=== PATIENT | male | born 1990 | race Two or more races ===

== ENCOUNTER 2024-09-26 11:52 | Emergency (ER) | payer MEDICAID ==
[~2024-09-26] VITALS: Ht 180.3 cm; Wt 143.4 kg
--- NOTE | 2024-09-26 12:17 | ED.PDOC ---
General HPI Comments 34y M who presents to the ED for chief complaint of hematuria. Pt states he recently got hired at [employer] at and states he was at physical at [facility] and states he was told his Accu check was in the 300's and told his urine contained blood. Pt states while at physical, he started to have dizziness and came to the ED for further evaluation. Pt in the ED, otherwise states he does not have history of DM but states his parents are both diabetics. Pt otherwise is ax0x4 and able to answer all questions and denies any other symptoms at this time. Chief Complaint: Urinary Time Seen by MD: 12:11 Reviewed notes: Nurses Notes, Medications (NKDA), Allergies (NKDA) Information Source: Patient Mode of Arrival: Ambulatory Brought in by: self Severity: Moderate Inability to void: None Timing: Hours Duration: Since onset Has not urinated for: Minutes Prehospital treatment: None Onset: Spontaneous Symptoms: Hematuria History of: None Penile discharge: None Modifying factors: None associated signs and symptoms: Hematuria Past Medical History Past Medical History (Other): CARLOS Surgical History: Appendectomy Family History Family History: Family hx of DM Social History Smoker: Non-Smoker Alcohol: Occasionally Drugs: Denies Drug Use Lives In: Home Constitutional: denies: chills, diaphoresis, fatigue, fever, malaise, sweats, weakness, others EENTM: denies: blurred vision, double vision, ear bleeding, ear discharge, ear drainage, ear pain, ear ringing, eye pain, eye redness, hearing loss, mouth p ain, mouth swelling, nasal discharge, nose bleeding, nose congestion, nose pain, photophobia, tearing, throat pain, throat swelling, voice changes, others Respiratory: denies: cough, hemoptysis, orthopnea, SOB at rest, shortness of br eath, SOB with excertion, stridor, wheezing, others Cardiovascular: denies: chest pain, dizzy spells, diaphoresis, Dyspnea on exertion, edema, irregular heart beat, left arm pain, lightheadedness, palpitations, PND, syncope, others Gastrointestinal: denies: abdomen distended, abdominal pain, blood streaked bowels, constipated, diarrhea, dysphagia, difficulty swallowing, hematemesis, melena, nausea, poor appetite, poor fluid intake, rectal bleeding, rectal pain, vomiting, others Genitourinary: reports: hematuria; denies: burning, dysuria, flank pain, frequency, incontinence, penile discharge, penile sore, pain, testicle pain, testicle swelling, urgency, others Neurological: denies: dizziness, fainting, headache, left sided numbness, left sided weakness, numbness, paresthesia, pre-existing deficit, right sided numbness, right sided weakness, seizure, speech problems, tingling, tremors, weakness, others Musculoskeletal: denies: back pain, gout, joint pain, joint swelling, muscle pain, muscle stiffness, neck pain, others Integumetry: denies: bruises, change in color, change in hair/nails, dryness, laceration, lesions, lumps, rash, wounds, others Allergic/Immunocompromised: denies: Difficulty Healing, Frequent Infections, Hives, Itching, others Hematologic/Lymphatic: denies: anemia, blood clots, easy bleeding, easy bruisin g, swollen glands, others Endocrine: denies: excessive hunger, excessive sweating, excessive thirst, excessive urination, flushing, intolerance to cold, intolerance to heat, unexplained weight gain, unexplained weight loss, others Psychiatric: denies: anxiety, bipolar disorder, depression, hopeless, panic disorder, schizophrenia, sleepless, suicidal, others All Other Systems: Reviewed and Negative Physical Exam General Appearance: Obese HEENT: Normal ENT Inspection, Pharynx Normal, TMs Normal Neck: Full Range of Motion, Non-Tender, Normal, Normal Inspection Respiratory: Chest Non-Tender, Lungs Clear, No Accessory Muscle Use, No Respiratory Distress, Normal Breath Sounds Cardiovascular: No Edema, No JVD, No Murmur, No Gallop, Normal Peripheral Pulses, Regular Rate/Rhythm Breast Exam: Deferred Gastrointestinal: No Organomegaly, Non Tender, No Pulsatile Mass, Normal Bowel Sounds, Soft Genitalia: Deferred Pelvic: Deferred Rectal: Deferred Extremities: No calf tenderness, Normal capillary refill, Normal inspection, Normal range of motion, Non-tender, No pedal edema Musculoskeletal : Apperance: Normal Neurologic: Alert, hypoid gear tester II-XII nml as Tested, No Motor Deficits, Normal Affect, Normal Mood, No Sensory Deficits Cerebellar Function: Normal Reflexes: Normal Skin: Dry, Normal Color, Warm Lymphatic: No Adenopathy Was a procedure done? Was a procedure done?: No EKG EKG : Pulse Rate (adult): 91 [place]: Normal Cardiac Rhythm: NSR Block: None Hypertrophy: None ST: Normal Differential Diagnosis Kidney stone (Female): N/A Kidney stone (Male): Pyelonephritis, Strain, Urolithiasis, Urinary tract infection Urinary Problem (Male): Epididymitis, Prostatitis, Urethritis, Urinary Retention, UTI X-Ray, Labs, Meds, VS Vital Signs Date Time Temp Pulse Resp B/P (MAP) Pulse Ox O2 Delivery O2 Flow Rate FiO2 09/26/24 12:44 83 18 96 Room Air* 0 21 09/26/24 12:41 98.4 86 18 158/79 (105) 96 98.4 09/26/24 12:41 86 18 96 Room Air 09/26/24 12:17 91 09/26/24 12:09 98.2 87 18 146/93 (110) 99 09/26/24 12:03 91 Lab Test 09/26/24 12:38 09/26/24 12:12 09/26/24 12:00 Range/Units White Blood Count 9.0 4.4-10.8 10^3/uL Red Blood Count 5.76 4.5-5.90 10^6/uL Hemoglobin 17.0 13.5-17.5 g/dL Hematocrit 50.3 41.0-53.0 % Mean Corpuscular Volume 87.3 80.0-100.0 fL Mean Corpuscular Hemoglobin 29.5 28.0-32.0 pg Mean Corpuscular Hemoglobin Concent 33.8 32.0-36.0 g/dL Red Cell Distribution Width 13.1 11.8-14.3 % Platelet Count 276 140-450 10^3/uL Mean Platelet Volume 8.6 6.9-10.8 fL Neutrophils (%) (Auto) 61.9 37.0-80.0 % Lymphocytes (%) (Auto) 28.0 10.0-50.0 % Monocytes (%) (Auto) 8.7 0.0-12.0 % Eosinophils (%) (Auto) 1.1 0.0-7.0 % Basophils (%) (Auto) 0.3 0.0-2.0 % Neutrophils # (Auto) 5.6 1.6-8.6 10 ^3/uL Lymphocytes # (Auto) 2.5 0.4-5.4 10 ^3/uL Monocytes # (Auto) 0.8 0-1.3 10 ^3/uL Eosinophils # (Auto) 0.1 0-0.8 10 ^3/uL Basophils # (Auto) 0 0-0.2 10 ^3/uL Nucleated Red Blood Cells 0.1 % Sodium Level 133 L 136-145 mmol/L Potassium Level 3.9 3.5-5.1 mmol/L Chloride Level 99 98-107 mmol/L Carbon Dioxide Level 27 20-31 mmol/L Anion Gap 7 5-15 Blood Urea Nitrogen 12 9-23 mg/dL Creatinine 0.79 0.700-1.30 mg/dL Glomerular Filtration Rate Calc 120 >90 mL/min BUN/Creatinine Ratio 15.2 10.0-20.0 Serum Glucose 355 H 74-106 mg/dL Calcium Level 10.4 8.7-10.4 mg/dL Urine Color Colorless Yellow Urine Clarity Clear Clear Urine pH 5.5 5.0-9.0 Urine Specific [place] 1.008 1.001-1.035 Urine Protein Negative Negative Urine Ketones Negative Negative Urine Blood 3+ H Negative /uL Urine Nitrite Negative Negative Urine Bilirubin Negative Negative Urine Urobilinogen Normal Negative mg/dL Urine Leukocyte Esterase Negative Negative /uL Urine RBC 4 0 - 3 /hpf Urine Microscopic WBC < 1 0-3 /HPF Urine Squamous Epithelial Cells None seen <5 /hpf Urine Bacteria None seen None Seen /hpf Urine Glucose 4+ H Normal mg/dL POC Glucose 355 H 70-106 mg/dl The patient was CBC is within normal limits The chemistry panel is within normal limits The urine test negative The patient was being discharged and follow up with the doctor The patient will return to the emergency department's the condition worsens. We explained to the patient that he needs to follow up with his doctor to determine if he needs to be started on medication for potential diabetes Images Reviewed?: Images reviewed and evaluated by me Time of 1ST Reevaluation: 12:40 Reevaluation 1ST: Unchanged Patient Education/Counseling: Diagnosis, Treatment, Prognosis, Need For Follow Up Family Education/Counseling: No Family Present Departure 1 Departure Time of Disposition: 13:55 Impression: Primary Impression: Hyperglycemia Disposition: 01 HOME / SELF CARE / HOMELESS Condition: Fair Discharged With: Self Critical Care Note Critical Care Time?: No Stability Stability form required: No Heart Score Heart Score: Heart Score Response (Comments) Value History N/A 0 EKG N/A 0 Age N/A 0 Risk Factors N/A 0 Troponin N/A 0 Total 0 I personally scribed for REBEKA DAMON MD ([email or web address]) on 09/26/24 at 12:17. Electronically submitted by Ghislaine Baltazar ([facility]). REBEKA DAMON MD Sep 26, 2024 12:17
[2024-09-26 12:44] VITALS: PULSE 83; RESP 18; O2SAT 96
[2024-09-26 12:54] LABS: Urine Bacteria None Seen /hpf (None Seen)
[2024-09-26 13:17] LABS: Basophils # (auto) 0 10 ^3/uL (0-0.2); Basophils % (auto) 0.3 % (0.0-2.0); Eosinophils # (auto) 0.1 10 ^3/uL (0-0.8); Eosinophils % (auto) 1.1 % (0.0-7.0); Hematocrit 50.3 % (41.0-53.0); Lymphocytes # (auto) 2.5 10 ^3/uL (0.4-5.4); Mean Corpuscular Hemoglobin 29.5 pg (28.0-32.0); Mean Corpuscular Hgb Conc. 33.8 g/dL (32.0-36.0); Mean Corpuscular Volume 87.3 fL (80.0-100.0); Monocytes # (auto) 0.8 10 ^3/uL (0-1.3); Monocytes % (auto) 8.7 % (0.0-12.0); Neutrophils # (auto) 5.6 10 ^3/uL (1.6-8.6); Neutrophils % (auto) 61.9 % (37.0-80.0); Nucleated Red Blood Cells % 0.1 %; Platelet Count (auto) 276 10^3/uL (140-450); Red Blood Cells 5.76 10^6/uL (4.5-5.90); Red Cell Distribution Width 13.1 % (11.8-14.3)
[2024-09-26 13:23] LABS: Urine Blood 3+ /uL (Negative); Urine Clarity Clear (Clear); Urine Color Colorless (Yellow); Urine Protein, UAD Negative (Negative); Urine Specific Gravity 1.008 (1.001-1.035); Urine Squamous Epithelial Cell None Seen /hpf (<5); Urine Urobilinogen Normal (Negative); Urine WBC < 1 /HPF (0-3); Urine pH 5.5 (5.0-9.0)
[2024-09-26 13:42] LABS: Anion Gap 7 (5-15); Carbon Dioxide 27 mmol/L (20-31); Chloride 99 mmol/L (98-107); Potassium 3.9 mmol/L (3.5-5.1)
[2024-09-26 13:46] LABS: Calcium 10.4 mg/dL (8.7-10.4); Sodium 133 mmol/L (136-145)
[2024-09-26 13:48] LABS: BUN/Creatinine Ratio 15.2 (10.0-20.0); Blood Urea Nitrogen 12 mg/dL (9-23)
[2024-09-26 13:57] LABS: Glucose 355 mg/dL (74-106)
[2024-09-26 14:44] VITALS: BP 134/86; PULSE 86; RESP 20; TEMP 98.1; O2SAT 94
--- NOTE | 2024-09-27 09:57 | ECG ---
[facility] Test Date: 2024-09-26 Test Time: 12:03:56 Pat Name: LANDON JOINER Department: ER Room: Gender: M Lab Pack Chemist: IC : 1990 Requested By: REBEKA DAMON Order Number: [id number] Reading MD: Harshil Matthew Measurements Intervals [place] Rate: 91 P: 23 VT: 172 QRS: -43 QRSD: 105 T: 9 QT: 353 QTc: 435 Interpretive Statements Sinus rhythm Left anterior fascicular block Consider anterior infarct Electronically Signed On 09-27-2024 12:00:07 PST by Harshil Matthew Please click the below link to view image of tracing.
== END 2024-09-26 14:46 | disposition home or self-care (01) ==
LOC: ER 11:56
DX: R73.9 Hyperglycemia, unspecified (principal); G47.33 Obstructive sleep apnea (adult) (pediatric); R31.9 Hematuria, unspecified; Z90.49 Acquired absence of other specified parts of digestive tract
CPT/HCPCS: 36415; 80048; 81001; 82962; 85025; 93005

== ENCOUNTER → 2024-10-12 | Outpatient (CLI) | payer MEDICAID ==
[2024-10-12 08:09] LABS: Urine Bacteria None Seen /hpf (None Seen)
[2024-10-12 08:35] LABS: Urine Blood Negative /uL (Negative); Urine Clarity Clear (Clear); Urine Color Light-Yellow (Yellow); Urine Protein, UAD Negative (Negative); Urine Specific Gravity 1.012 (1.001-1.035); Urine Squamous Epithelial Cell None Seen /hpf (<5); Urine Urobilinogen Normal (Negative); Urine WBC < 1 /HPF (0-3)
[2024-10-12 08:44] LABS: Alkaline Phosphatase 90 U/L (46-116); Anion Gap 9 (5-15); BUN/Creatinine Ratio 15.4 (10.0-20.0); Blood Urea Nitrogen 12 mg/dL (9-23); Calcium 10.1 mg/dL (8.7-10.4); Carbon Dioxide 26 mmol/L (20-31); Chloride 103 mmol/L (98-107); LDL Cholesterol 85 mg/dL (< 100); Potassium 3.9 mmol/L (3.5-5.1); Sodium 138 mmol/L (136-145)
[2024-10-12 08:45] LABS: Alanine Aminotransferase 63 U/L (7-40); Albumin 4.9 g/dL (3.2-4.8); Aspartate Aminotransferase 65 U/L (13-40); Bilirubin, Total 0.9 mg/dL (0.2-1.0); Cholesterol 143 mg/dL (< 200); Glucose 154 mg/dL (74-106); HDL Cholesterol 42 mg/dL (40-59); Triglycerides 153 mg/dL (< 150)
[2024-10-12 08:46] LABS: Basophils # (auto) 0.1 10 ^3/uL (0-0.2); Eosinophils # (auto) 0.2 10 ^3/uL (0-0.8); Total Protein 7.9 g/dL (5.7-8.2)
[2024-10-12 09:05] LABS: Basophils % (auto) 0.5 % (0.0-2.0); Eosinophils % (auto) 1.9 % (0.0-7.0); Hematocrit 47.9 % (41.0-53.0); Hemoglobin 16.3 g/dL (13.5-17.5); Lymphocytes # (auto) 3.1 10 ^3/uL (0.4-5.4); Lymphocytes % (auto) 27.5 % (10.0-50.0); Mean Corpuscular Hemoglobin 29.9 pg (28.0-32.0); Mean Corpuscular Volume 87.9 fL (80.0-100.0); Monocytes # (auto) 0.9 10 ^3/uL (0-1.3); Monocytes % (auto) 7.5 % (0.0-12.0); Neutrophils # (auto) 7.1 10 ^3/uL (1.6-8.6); Neutrophils % (auto) 62.6 % (37.0-80.0); Nucleated Red Blood Cells % 0.3 %; Platelet Count (auto) 291 10^3/uL (140-450); Red Blood Cells 5.45 10^6/uL (4.5-5.90); Red Cell Distribution Width 13.1 % (11.8-14.3); White Blood Cell 11.3 10^3/uL (4.4-10.8)
[2024-10-12 11:10] LABS: Platelet Estimate Adequate
== END | disposition home or self-care (01) ==
LOC: LAB 07:46
PROVIDERS: ATTEND Licensed Practical Nurse
DX: Z13.6 Encounter for screening for cardiovascular disorders (principal); Z13.220 Encounter for screening for lipoid disorders; Z13.29 Encounter for screening for other suspected endocrine disorder; E55.9 Vitamin D deficiency, unspecified; Z83.3 Family history of diabetes mellitus
CPT/HCPCS: 36415; 80053; 80061; 81001; 82306; 83036; 84443; 85025; 86703; 86704; 86706; 86708; 86803; 87340

== ENCOUNTER 2025-01-17 10:21 | Outpatient (CLI) | payer MEDICAID ==
[2025-01-17 10:45] LABS: Basophils # (auto) 0 10 ^3/uL (0-0.2); Basophils % (auto) 0.6 % (0.0-2.0); Eosinophils # (auto) 0.2 10 ^3/uL (0-0.8); Hematocrit 46.8 % (41.0-53.0); Hemoglobin 15.9 g/dL (13.5-17.5); Lymphocytes # (auto) 2.6 10 ^3/uL (0.4-5.4); Lymphocytes % (auto) 34.3 % (10.0-50.0); Mean Corpuscular Hemoglobin 29.7 pg (28.0-32.0); Mean Corpuscular Volume 87.3 fL (80.0-100.0); Monocytes # (auto) 0.8 10 ^3/uL (0-1.3); Neutrophils # (auto) 4.1 10 ^3/uL (1.6-8.6); Neutrophils % (auto) 53.1 % (37.0-80.0); Nucleated Red Blood Cells % 0.1 %; Platelet Count (auto) 236 10^3/uL (140-450); Red Blood Cells 5.36 10^6/uL (4.5-5.90); White Blood Cell 7.7 10^3/uL (4.4-10.8)
[2025-01-17 11:16] LABS: Creatinine, Urine 74.61 mg/dL (30.0-125.0)
[2025-01-17 11:23] LABS: Alanine Aminotransferase 30 U/L (7-40); Albumin 4.8 g/dL (3.2-4.8); Alkaline Phosphatase 80 U/L (46-116); Anion Gap 8 (5-15); Aspartate Aminotransferase 14 U/L (13-40); BUN/Creatinine Ratio 18.3 (10.0-20.0); Blood Urea Nitrogen 15 mg/dL (9-23); Carbon Dioxide 28 mmol/L (20-31); Chloride 105 mmol/L (98-107); Cholesterol 159 mg/dL (< 200); HDL Cholesterol 45 mg/dL (40-59); LDL Cholesterol 97 mg/dL (< 100); Potassium 4.1 mmol/L (3.5-5.1); Sodium 141 mmol/L (136-145); Total Protein 7.8 g/dL (5.7-8.2); Triglycerides 150 mg/dL (< 150)
[2025-01-17 11:24] LABS: Calcium 10.4 mg/dL (8.7-10.4); Glucose 129 mg/dL (74-106)
[2025-01-18 11:07] LABS: Hepatitis B Core Total AB Negative (Negative)
[2025-01-18 12:34] LABS: Hepatitis A Total Antibody Negative (Negative); Hepatitis B Surface Antibody Negative (Negative); Hepatitis B Surface Antigen Negative (Negative); Hepatitis C Antibody Negative (Negative)
== END 2025-01-17 17:00 | disposition home or self-care (01) ==
LOC: LAB 10:21
PROVIDERS: ATTEND Licensed Practical Nurse
DX: I10 Essential (primary) hypertension (principal); E11.9 Type 2 diabetes mellitus without complications; E78.1 Pure hyperglyceridemia; R74.01 Elevation of levels of liver transaminase levels
CPT/HCPCS: 36415; 80053; 80061; 82043; 82570; 83036; 85025; 86704; 86706; 86708; 86803; 87340

== ENCOUNTER 2025-01-23 09:33 | Inpatient (IN) | payer MEDICAID ==
[~2025-01-23] VITALS: Ht 180.3 cm; Wt 144.7 kg
--- NOTE | 2025-01-23 10:30 | DVH ---
XY CHEST PORTABLE, HISTORY: left sided facial numbness COMPARISON: None None TECHNICAL DATA: 1 view of the chest was obtained. FINDINGS: Lines and tubes: None Cardiomediastinal silhouette: normal Pulmonary vasculature: normal Lung expansion: low Lung airspace: normal Lung interstitium: normal Pleura: normal Pneumothorax: no Bones: Unremarkable Other: no IMPRESSION: No acute intrathoracic abnormality.
--- NOTE | 2025-01-23 10:30 | DVH ---
EXAM: CT HEAD WITHOUT CONTRAST INDICATION: Left sided facial numbness TECHNIQUE: CT of the head without intravenous contrast. Coronal and sagittal reformatted images are s ubmitted. Radiation Dose : 1. Head: CT Dose: CTDI volume is 68.71 mGy. Dose-length product is 1353.62 mGy*cm The dose indicators for CT are the volume Computed Tomography (CT) Dose Index (CTDIvol) and the Dose Length Product (DLP), and are measured in units of mGy and mGy-cm, respectively. These indicators are not patient dose, but values generated from the CT scanner acquisition factors. The report includes radiation exposure data for exposures received during this examination. All CT scans at this medical facility are performed using dose modulation techniques as appropriate to a performed exam including the following: Automated exposure control was utilized; adjustment of the MA and/or KV according to patient size; and use of iterative reconstruction technique. COMPARISON: None FINDINGS: There is no evidence of acute intracranial hemorrhage, extra-axial collection, mass effect, midline s hift, herniation or hydrocephalus. The ventricles, sulci and cisterns are age appropriate. The forte-white differentiation is intact. The visualized paranasal sinuses and mastoid air cells are clear. No depressed calvarial fracture. The surrounding soft tissues are unremarkable. IMPRESSION: 1. Unremarkable CT scan of the head without contrast.
[2025-01-23 10:35] LABS: Basophils # (auto) 0 10 ^3/uL (0-0.2); Basophils % (auto) 0.3 % (0.0-2.0); Eosinophils # (auto) 0.1 10 ^3/uL (0-0.8); Eosinophils % (auto) 1.3 % (0.0-7.0); Hematocrit 47.3 % (41.0-53.0); Hemoglobin 16.5 g/dL (13.5-17.5); Lymphocytes # (auto) 3.2 10 ^3/uL (0.4-5.4); Lymphocytes % (auto) 32.8 % (10.0-50.0); Mean Corpuscular Hgb Conc. 34.8 g/dL (32.0-36.0); Mean Corpuscular Volume 86.2 fL (80.0-100.0); Monocytes # (auto) 0.8 10 ^3/uL (0-1.3); Monocytes % (auto) 8.2 % (0.0-12.0); Neutrophils # (auto) 5.6 10 ^3/uL (1.6-8.6); Neutrophils % (auto) 57.4 % (37.0-80.0); Nucleated Red Blood Cells % 0.1 %; Platelet Count (auto) 251 10^3/uL (140-450); Red Blood Cells 5.49 10^6/uL (4.5-5.90); Red Cell Distribution Width 13.6 % (11.8-14.3); White Blood Cell 9.7 10^3/uL (4.4-10.8)
--- NOTE | 2025-01-23 10:38 | ED.PDOC ---
HPI (NEURO) HPI Comments This is a 34 year old male presenting to the ED with chief complaint of left sided numbness. Patient reports that he has been experiencing intermittent left arm and facial numbness for the past 2 weeks, occurring 3-4 times each day. Patient relays that he has history of DM, however, since being diagnosed back in September he has dropped his A1c level with medication and has generally felt better than before. Patient denies any N/V/D, chest pain, SOB, abdominal pain, dizziness, headache, weakness, or tingling. Chief Complaint: Left Sided Weakness Time Seen by MD: 10:36 Reviewed Notes: Nurses Notes, Medications, Allergies Information Source: Patient Mode of Arrival: Ambulatory Severity: Moderate Timing: Weeks Duration: Intermittent Prehospital treatment: None Numbness Location: (L) Arm, Facial Onset: At rest Circumstances: Spontaneous Symptoms: Numbness Associated Signs and Symptoms: Numbness Past Medical History PAST MEDICAL HISTORY: DM Surgical History: Appendectomy Family History Family History: Reviewed,noncontributory to illness, Family hx of DM Social History Smoker: Non-Smoker Alcohol: Occasionally Drugs: Denies Drug Use Lives In: Home Constitutional: denies: chills, diaphoresis, fatigue, fever, malaise, sweats, weakness, others EENTM: denies: blurred vision, double vision, ear bleeding, ear discharge, ear drainage, ear pain, ear ringing, eye pain, eye redness, hearing loss, mouth pain, mouth swelling, nasal discharge, nose bleeding, nose congestion, nose pain, photophobia, tearing, throat pain, throat swelling, voice changes, others Respiratory: denies: cough, hemoptysis, orthopnea, SOB at rest, shortness of breath, SOB with excertion, stridor, wheezing, others Cardiovascular: denies: chest pain, dizzy spells, diaphoresis, Dyspnea on exertion, edema, irregular heart beat, left arm pain, lightheadedness, palpitations, PND, syncope, others Gastrointestinal: denies: abdomen distended, abdominal pain, blood streaked bowels, constipated, diarrhea, dysphagia, difficulty swallowing, hematemesis, melena, nausea, poor appetite, poor fluid intake, rectal bleeding, rectal pain, vomiting, others Genitourinary: denies: burning, dysuria, flank pain, frequency, hematuria, incontinence, penile discharge, penile sore, pain, testicle pain, testicle swelling, urgency, others Neurological: reports: left sided numbness; denies: dizziness, fainting, headache, left sided weakness, numbness, paresthesia, pre-existing deficit, right sided numbness, right sided weakness, seizure, speech problems, tingling, tremors, weakness, others Musculoskeletal: denies: back pain, gout, joint pain, joint swelling, muscle pain, muscle stiffness, neck pain, others Integumetry: denies: bruises, change in color, change in hair/nails, dryness, laceration, lesions, lumps, rash, wounds, others Allergic/Immunocompromised: denies: Difficulty Healing, Frequent Infections, Hives, Itching, others Hematologic/Lymphatic: denies: anemia, blood clots, easy bleeding, easy bruising, swollen glands, others Endocrine: denies: excessive hunger, excessive sweating, excessive thirst, excessive urination, flushing, intolerance to cold, intolerance to heat, unexplained weight gain, unexplained weight loss, others Psychiatric: denies: anxiety, bipolar disorder, depression, hopeless, panic disorder, schizophrenia, sleepless, suicidal, others All Other Systems: Reviewed and Negative Physical Exam General Appearance: No Apparent Distress, Normal HEENT: Normal ENT Inspection, PERRL/EOMI Neck: Full Range of Motion, Non-Tender, Normal, Normal Inspection Respiratory: Chest Non-Tender, Lungs Clear, No Accessory Muscle Use, No Respiratory Distress, Normal Breath Sounds Cardiovascular: No Edema, No JVD, No Murmur, No Gallop, Normal Peripheral Pulses, Regular Rate/Rhythm Breast Exam: Deferred Gastrointestinal: No Organomegaly, Non Tender, No Pulsatile Mass, Normal Bowel Sounds, Soft Genitalia: Deferred Pelvic: Deferred Rectal: Deferred Extremities: No calf tenderness, Normal capillary refill, Normal inspection, Normal range of motion, Non-tender, No pedal edema Musculoskeletal : Apperance: Normal Neurologic: Alert, rfid developer II-XII nml as Tested, No Motor Deficits, Normal Affect, Normal Mood, No Sensory Deficits Cerebellar Function: Normal Reflexes: Normal Skin: Dry, Normal Color, Warm Lymphatic: No Adenopathy Was a procedure done? Was a procedure done?: No Differential Diagnosis (SZ) Seizure: N/A CVA: CVA, Electrolyte Imbalance, Hypoglycemia General Weakness: Dehydration, Dysrhythmia, TIA, VBI Headache: Cluster, Migraine X-Ray, Labs, Meds, VS Vital Signs Date Time Temp Pulse Resp B/P (MAP) Pulse Ox O2 Delivery O2 Flow Rate FiO2 01/23/25 09:53 78 01/23/25 09:39 98.0 79 18 156/94 (114) 97 98.0 Lab Test 01/23/25 10:06 Range/Units White Blood Count 9.7 # 4.4-10.8 10^3/uL Red Blood Count 5.49 4.5-5.90 10^6/uL Hemoglobin 16.5 13.5-17.5 g/dL Hematocrit 47.3 41.0-53.0 % Mean Corpuscular Volume 86.2 80.0-100.0 fL Mean Corpuscular Hemoglobin 30.0 28.0-32.0 pg Mean Corpuscular Hemoglobin Concent 34.8 32.0-36.0 g/dL Red Cell Distribution Width 13.6 11.8-14.3 % Platelet Count 251 140-450 10^3/uL Mean Platelet Volume 8.4 6.9-10.8 fL Neutrophils (%) (Auto) 57.4 37.0-80.0 % Lymphocytes (%) (Auto) 32.8 10.0-50.0 % Monocytes (%) (Auto) 8.2 0.0-12.0 % Eosinophils (%) (Auto) 1.3 0.0-7.0 % Basophils (%) (Auto) 0.3 0.0-2.0 % Neutrophils # (Auto) 5.6 1.6-8.6 10 ^3/uL Lymphocytes # (Auto) 3.2 0.4-5.4 10 ^3/uL Monocytes # (Auto) 0.8 0-1.3 10 ^3/uL Eosinophils # (Auto) 0.1 0-0.8 10 ^3/uL Basophils # (Auto) 0 0-0.2 10 ^3/uL Nucleated Red Blood Cells 0.1 % Sodium Level 142 136-145 mmol/L Potassium Level 3.9 3.5-5.1 mmol/L Chloride Level 103 98-107 mmol/L Carbon Dioxide Level 28 20-31 mmol/L Anion Gap 11 5-15 Blood Urea Nitrogen 16 9-23 mg/dL Creatinine 0.78 0.700-1.30 mg/dL Glomerular Filtration Rate Calc 120 >90 mL/min BUN/Creatinine Ratio 20.5 H 10.0-20.0 Serum Glucose 153 H 74-106 mg/dL Calcium Level 10.3 8.7-10.4 mg/dL Troponin I High Sensitivity < 3 L </=54 ng/L CT Head: FINDINGS: There is no evidence of acute intracranial hemorrhage, extra-axial collection, mass effect, midline shift, herniation or hydrocephalus. The ventricles, sulci and cisterns are age appropriate. The forte-white differentiation is intact. The visualized paranasal sinuses and mastoid air cells are clear. No depressed calvarial fracture. The surrounding soft tissues are unremarkable. IMPRESSION: 1. Unremarkable CT scan of the head without contrast. Chest XR: FINDINGS: Lines and tubes: None Cardiomediastinal silhouette: normal Pulmonary vasculature: normal Lung expansion: low Lung airspace: normal Lung interstitium: normal Pleura: normal Pneumothorax: no Bones: Unremarkable Other: no IMPRESSION: No acute intrathoracic abnormality. Images Reviewed?: Images reviewed and evaluated by me Time of 1ST Reevaluation: 11:35 Reevaluation 1ST: Unchanged Patient Education/Counseling: Diagnosis, Treatment Family Education/Counseling: No Family Present Additional Information Previous visits reviewed: 09/26/24 for hyperglycemia The following tests were ordered, and results were reviewed by me: CBC, BMP, UA, Troponin, Chest XR, CT Head Additional Information was gathered from interviewing the following independent historians: None I reviewed and agreed with the following test results read by other providers: Chest XR, CT Head I discussed treatment and results with medical personnel and: patient Comprehensive systems review obtained and negative except for what is stated in the HPI. Departure 1 Departure Time of Disposition: 12:01 (Patient with with the current left-sided facial numbness and tingling as well as left-sided arm paresthesias. Patient's workup so far is benign however given patient's comorbidities and high-risk symptoms we will admit patient for further workup and expert consultation.) Impression: Primary Impression: Facial paresthesia Additional Impression: Left face and left arm tingling Disposition: ADMITTED INPATIENT Admit to: Med Surg Condition: Serious Critical Care Note Critical Care Time?: Yes Critical care comment: Concern for CVA Authorized and Performed by: Cassidy Quinonez MD Total critical care time: Approximately 34 minutes Due to a high probability of clinically significant, life threatening deterioration, the patient required my highest level of preparedness to intervene emergently and I personally spent this critical care time directly and personally managing the patient. This critical care time included obtaining a history; examining the patient; pulse oximetry; ordering and review of studies; arranging urgent treatment with development of a management plan; evaluation of patient's response to treatment; frequent reassessment; and, discussions with other providers. This critical care time was performed to assess and manage the high probability of imminent, life-threatening deterioration that could result in multi-organ failure. It was exclusive of separately billable procedures and treating other patients and teaching time. Please see my other sections and the rest of the note for further information on patient assessment and treatment. Stability Stability form required: No Heart Score Heart Score: Heart Score Response (Comments) Value History N/A 0 EKG N/A 0 Age N/A 0 Risk Factors N/A 0 Troponin N/A 0 Total 0 I personally scribed for CASSIDY QUINONEZ MD ([email or web address]) on 01/23/25 at 10:38. Electronically submitted by Aldo Mendoza ([email or web address]). I personally scribed for CASSIDY QUINONEZ MD ([email or web address]) on 01/23/25 at 10:42. Electronically submitted by Aldo Mendoza ([email or web address]). CASSIDY QUINONEZ MD Jan 23, 2025 10:38
[2025-01-23 10:45] LABS: Chloride 103 mmol/L (98-107); Potassium 3.9 mmol/L (3.5-5.1); Sodium 142 mmol/L (136-145)
[2025-01-23 10:46] LABS: Anion Gap 11 (5-15); Calcium 10.3 mg/dL (8.7-10.4); Carbon Dioxide 28 mmol/L (20-31)
[2025-01-23 10:51] LABS: BUN/Creatinine Ratio 20.5 (10.0-20.0); Blood Urea Nitrogen 16 mg/dL (9-23); Glucose 153 mg/dL (74-106)
[2025-01-23 13:27] LABS: Urine Bacteria FEW /hpf (None Seen); Urine Blood Negative /uL (Negative); Urine Clarity Clear (Clear); Urine Color Light-Yellow (Yellow); Urine Protein, UAD Negative (Negative); Urine Specific Gravity 1.008 (1.001-1.035); Urine Squamous Epithelial Cell None Seen /hpf (<5); Urine Urobilinogen Normal (Negative); Urine WBC < 1 /HPF (0-3)
[2025-01-23] MEDS ORDERED: DEXTROSE (50%) 50ML SYRG IV PRN (14:45)
[2025-01-23] MEDS ORDERED: ACETAMINOPHEN 325 MG TAB PO PRN (14:45)
[2025-01-23] MEDS ORDERED: hydrALAZINE HCL 20 MG/ML VL IV PRN (14:45)
[2025-01-23] MEDS ORDERED: ONDANSETRON HCL 4 MG/2 ML VIAL IV PRN (14:45)
[2025-01-23] MEDS ORDERED: HYDROcodone-ACET 5/325MG TAB PO PRN (14:45)
[2025-01-23] MEDS ORDERED: DOCUSATE SOD 100 MG CAP PO PRN (14:45)
--- NOTE | 2025-01-23 15:18 | DVHHP2 ---
History of Present Illness Reason for Visit: Left-sided weakness History of Present Illness The patient is a 34-year-old male with past medical history of diabetes mellitus who presented to [facility] with complaint of left-sided weakness. Patient reports symptoms progressively get worse with intermittent left arm numbness, facial numbness, for the past 2 weeks, non occurring more frequent 3-4 times each day, getting worse today that prompted this visit. Patient was seen and evaluated in the ED, laboratory data shows WBC 9.7, platelets 251, sodium 142, potassium 3.9, BUN 16, creatinine 0.78, glucose 153, troponin 3, blood pressure 136/89, heart rate 62, temperature 98.4 F, O2 saturation 96% on room air. Head CT showed no evidence of acute intracranial hemorrhage, extra-axial collection, mass effect, midline shift, herniation or hydrocephalus. Please see medication orders section in the computer. On my assessment, patient denied chest pain, no headache, no dizziness, no blurry vision, no shortness of breath, no nausea, vomiting, no fever, no chills. Patient was admitted for further evaluation and medical management. Past Medical History Diabetes mellitus Past Surgical History Appendectomy Family History Reviewed, noncontributory to the management of this case. Past Social History The patient lives at home, denies smoking, alcohol or illicit drugs abuse. Review of Systems Constitutional: No: Fever, Chills, Sweats, Weakness, Malaise, Other Eyes: No: Pain, Vision change, Conjunctivae inflammation, Eyelid inflammation, Other, Redness ENT: No: Ear pain, Ear discharge, Nose pain, Nose discharge, Nose congestion, Mouth pain, Mouth swelling, Throat pain, Throat swelling, Other Respiratory: No: Cough, Dry, Shortness of breath, SOB with excertion, Wheezing, Hemoptysis, Pleuritic Pain, Sputum, Wheezing, Other Cardiovascular: No: Chest Pain, Palpitations, Orthopnea, Paroxysmal Noc. Dyspnea, Edema, Lt Headedness, Other Gastrointestinal: No: Nausea, Vomiting, Abdominal Pain, Diarrhea, Constipation, Melena, Hematochezia, Other Genitourinary: No Dysuria, No Frequency, No Incontinence, No Hematuria, No Retention, No Other Musculoskeletal: No: other, neck pain, shoulder pain, arm pain, back pain, hand pain, leg pain, foot pain Skin: No: Rash, Lesions, Jaundice, Bruising, Other Neurological: Weakness (Left-sided), Other (Left-sided numbness/tingling); No: Numbness, Incoordination, Change in speech, Confusion, Seizures Allergies: Coded Allergies: Amoxicillin (Verified Allergy, Unknown, 01/23/25) Medications Current Medications Medications Dose Ordered Sig/Brenda Route Start Time Stop Time Status Last Admin Dose Admin Lisinopril 5 mg DAILY PO 01/24/25 10:00 Hydralazine HCl 10 mg Q6HP PRN IV 01/23/25 14:45 Diagnostic Test (Pha) 1 strip ACHS 01/23/25 17:00 Insulin Human Regular ACHS SC 01/23/25 17:00 Dextrose 50 ml UD PRN IV 01/23/25 14:45 Sodium Chloride 10 ml Q8HR IV 01/23/25 22:00 Acetaminophen/ Hydrocodone Bitart 1 tab Q4HP PRN PO 01/23/25 14:45 Ondansetron HCl 4 mg Q4HP PRN IV 01/23/25 14:45 Docusate Sodium 100 mg BIDPRN PRN PO 01/23/25 14:45 Acetaminophen 650 mg Q6HP PRN PO 01/23/25 14:45 Exam Vital Signs Vital Signs Date Time Temp Pulse Resp B/P (MAP) Pulse Ox O2 Delivery O2 Flow Rate FiO2 01/23/25 12:50 62 20 96 Room Air 01/23/25 12:50 98.4 136/89 (105) 98.4 General Appearance: Alert, Oriented X3, Cooperative, No acute distress HEENT: Atraumatic, PERRLA, EOMI, Mucous membr. moist/pink Respiratory: Clear to auscultation, Normal air movement Cardiovascular: Regular rate, Normal S1, Normal S2, No murmurs Abdominal: Normal bowel sounds, Soft, No tenderness, No hepatospenomegaly, No masses Extremities: No clubbing, No cyanosis, No edema, Normal pulses, No tenderness/swelling, Other Skin: No rashes, No breakdown, No significant lesion Neuro: Normal speech, Normal tone, Sensation intact, Cranial nerves 3-12 NL, Reflexes 2+, Other (Left-sided weakness) Psych/Mental Status: Mental status NL, Mood NL Labs/Xrays Labs Test 01/23/25 13:05 01/23/25 10:06 Range/Units Urine Color Light-yellow Yellow Urine Clarity Clear Clear Urine pH 5.0 5.0-9.0 Urine Specific [place] 1.008 1.001-1.035 Urine Protein Negative Negative Urine Ketones Negative Negative Urine Blood Negative Negative /uL Urine Nitrite Negative Negative Urine Bilirubin Negative Negative Urine Urobilinogen Normal Negative mg/dL Urine Leukocyte Esterase Negative Negative /uL Urine RBC 1 0 - 3 /hpf Urine Microscopic WBC < 1 0-3 /HPF Urine Squamous Epithelial Cells None seen <5 /hpf Urine Bacteria Few H None Seen /hpf Urine Glucose 3+ H Normal mg/dL White Blood Count 9.7 # 4.4-10.8 10^3/uL Red Blood Count 5.49 4.5-5.90 10^6/uL Hemoglobin 16.5 13.5-17.5 g/dL Hematocrit 47.3 41.0-53.0 % Mean Corpuscular Volume 86.2 80.0-100.0 fL Mean Corpuscular Hemoglobin 30.0 28.0-32.0 pg Mean Corpuscular Hemoglobin Concent 34.8 32.0-36.0 g/dL Red Cell Distribution Width 13.6 11.8-14.3 % Platelet Count 251 140-450 10^3/uL Mean Platelet Volume 8.4 6.9-10.8 fL Neutrophils (%) (Auto) 57.4 37.0-80.0 % Lymphocytes (%) (Auto) 32.8 10.0-50.0 % Monocytes (%) (Auto) 8.2 0.0-12.0 % Eosinophils (%) (Auto) 1.3 0.0-7.0 % Basophils (%) (Auto) 0.3 0.0-2.0 % Neutrophils # (Auto) 5.6 1.6-8.6 10 ^3/uL Lymphocytes # (Auto) 3.2 0.4-5.4 10 ^3/uL Monocytes # (Auto) 0.8 0-1.3 10 ^3/uL Eosinophils # (Auto) 0.1 0-0.8 10 ^3/uL Basophils # (Auto) 0 0-0.2 10 ^3/uL Nucleated Red Blood Cells 0.1 % Sodium Level 142 136-145 mmol/L Potassium Level 3.9 3.5-5.1 mmol/L Chloride Level 103 98-107 mmol/L Carbon Dioxide Level 28 20-31 mmol/L Anion Gap 11 5-15 Blood Urea Nitrogen 16 9-23 mg/dL Creatinine 0.78 0.700-1.30 mg/dL Glomerular Filtration Rate Calc 120 >90 mL/min BUN/Creatinine Ratio 20.5 H 10.0-20.0 Serum Glucose 153 H 74-106 mg/dL Calcium Level 10.3 8.7-10.4 mg/dL Troponin I High Sensitivity < 3 L </=54 ng/L PATIENT: LANDON JOINER ACCT: [id number] UNIT: [id number] : 1990 LOC: ER ROOM / BED: / AGE / SEX: 34 / M ADM STATUS: REG ER SERVICE 0950 ORDERING PHYSICIAN: CASSIDY QUINONEZ MD PROCEDURE(s): HWOCT - HEAD WITHOUT CONTRAST REASON: left sided facial numbness ORDER NUMBER(s): [id number], ACCESSION NUMBER(s): [id number] EXAM: CT HEAD WITHOUT CONTRAST INDICATION: Left sided facial numbness TECHNIQUE: CT of the head without intravenous contrast. Coronal and sagittal reformatted images are submitted. Radiation Dose: 1. Head: CT Dose: CTDI volume is 68.71 mGy. Dose-length product is 1353.62 mGy*cm The dose indicators for CT are the volume Computed Tomography (CT) Dose Index (CTDIvol) and the Dose Length Product (DLP), and are measured in units of mGy and mGy-cm, respectively. These indicators are not patient dose, but values generated from the CT scanner acquisition factors. The report includes radiation exposure data for exposures received during this examination. All CT scans at this medical facility are performed using dose modulation techniques as appropriate to a performed exam including the following: Automated exposure control was utilized; adjustment of the MA and/or KV according to patient size; and use of iterative reconstruction technique. COMPARISON: None FINDINGS: There is no evidence of acute intracranial hemorrhage, extra-axial collection, mass effect, midline shift, herniation or hydrocephalus. The ventricles, sulci and cisterns are age appropriate. The forte-white differentiation is intact. The visualized paranasal sinuses and mastoid air cells are clear. No depressed calvarial fracture. The surrounding soft tissues are unremarkable. IMPRESSION: 1. Unremarkable CT scan of the head without contrast. ORDERING PHYSICIAN: CASSIDY QUINONEZ MD PROCEDURE(s): CXRP - CHEST PORTABLE REASON: left sided facial numbness ORDER NUMBER(s): [id number], ACCESSION NUMBER(s): [id number] CHEST PORTABLE, HISTORY: left sided facial numbness COMPARISON: None None TECHNICAL DATA: 1 view of the chest was obtained. FINDINGS: Lines and tubes: None Cardiomediastinal silhouette: normal Pulmonary vasculature: normal Lung expansion: low Lung airspace: normal Lung interstitium: normal Pleura: normal Pneumothorax: no Bones: Unremarkable Other: no IMPRESSION: No acute intrathoracic abnormality. Assessment/Plan Assessment/Plan Facial paresthesia Left face and left arm tingling Left-sided weakness Plan 1. Admit to telemetry unit 2. Breathing treatment 3. Pain control management 4. Management of fluids and electrolytes 5. Consultation for Neurology 6. Diagnostic tests-head CT 7. DVT prophylaxis-on SCDs 8. Repeat labs CBC, CMP in a.m. 9. Continue with current medical management 10. Treatment plan discussed with patient and RN. Patient verbalized understanding. Plan discussed with: Patient, Other (RN) My Orders Orders - SHEELA NAVARRO DNP Procedure Category Date Status Time Consistent DIET 01/23/25 Transmitted Carb(Ccho)Diabetes Dinner Lisinopril Tablet PHA 01/24/25 In Process (Zestril Tablet) 10:00 Hydralazine Injection PHA 01/23/25 In Process (Apresoline Inject 14:45 Glucose Blood PHA 01/23/25 In Process (Accu-Chek Comfort 17:00 Insulin R (Human) PHA 01/23/25 In Process (Insulin R) 17:00 Dextrose 50% Syringe PHA 01/23/25 In Process 14:45 Allergies TONI 01/23/25 In Process 14:43 Code Status CODE 01/23/25 Transmitted 14:43 Sodium Chloride Lock PHA 01/23/25 In Process (Saline Lock Ns) 22:00 Oxygen Per Hour RT 01/23/25 Transmitted 14:43 Hydrocodone-Acet PHA 01/23/25 In Process 5/325mg Tab (Centuria 14:45 Ondansetron Hcl PHA 01/23/25 In Process (Zofran) 14:45 Docusate Sodium PHA 01/23/25 In Process Capsule (Colace 14:45 Complete Blood Count LAB 01/24/25 Verified 04:00 Comprehensive LAB 01/24/25 Verified Metabolic Panel 04:00 Condition: Serious TONI 01/23/25 In Process 14:43 Acetaminophen Tablet PHA 01/23/25 In Process (Tylenol Tablet) 14:45 Bedrest With Bathroom [facility] [place] 01/23/25 In Process Privileg 14:43 Sequential TONI 01/23/25 In Process Compression Device Problem List: (1) Facial paresthesia (2) Left face and left arm tingling (3) Left-sided weakness Date of Service: Jan 23, 2025 Billing Provider: SHEELA NAVARRO DNP Common Visit Codes: [id number] INP/OBS CARE (HIGH) SHEELA NAVARRO DNP Jan 23, 2025 15:18
[2025-01-23] MEDS ORDERED: NITROGLYCERIN 0.4 MG SL TAB SL PRN (15:30)
[2025-01-23] MEDS ORDERED: MORPHINE SULFATE 4 MG/ML SYR/VIAL IV PRN (15:45)
[2025-01-23] MEDS: ACCU-CHEK COMFORT CURVE STRIP VI SCH (16:36)
[2025-01-23] MEDS: InsuLIN REG 1unit/0.01ml Soln (100units/ml) SC SCH (16:40)
[2025-01-23 19:00] VITALS: BP 141/94; PULSE 80; RESP 18; TEMP 98.6; O2SAT 94
[2025-01-23 20:00] VITALS: PULSE 73; PULSE 89; RESP 16; O2SAT 100
[2025-01-23 21:00] VITALS: BP 129/77; PULSE 73; RESP 16; TEMP 98.3; O2SAT 96
[2025-01-23] MEDS: SODIUM CHLOR 0.9% PF (SALINE LOCK) 10ML VIAL/SYR IV SCH (22:12)
[2025-01-24] VITALS (8 sets, daily range): BP systolic 108–142; BP diastolic 63–105; PULSE 68–85; RESP 16–20; TEMP 97.1–98.1; O2SAT 95–100
[2025-01-24 07:04] LABS: Basophils # (auto) 0 10 ^3/uL (0-0.2); Basophils % (auto) 0.4 % (0.0-2.0); Eosinophils # (auto) 0.2 10 ^3/uL (0-0.8); Hematocrit 45.5 % (41.0-53.0); Hemoglobin 15.6 g/dL (13.5-17.5); Lymphocytes # (auto) 3.2 10 ^3/uL (0.4-5.4); Lymphocytes % (auto) 39.8 % (10.0-50.0); Mean Corpuscular Hemoglobin 29.6 pg (28.0-32.0); Mean Corpuscular Hgb Conc. 34.3 g/dL (32.0-36.0); Mean Corpuscular Volume 86.2 fL (80.0-100.0); Monocytes # (auto) 0.7 10 ^3/uL (0-1.3); Monocytes % (auto) 8.4 % (0.0-12.0); Neutrophils # (auto) 3.9 10 ^3/uL (1.6-8.6); Neutrophils % (auto) 49.4 % (37.0-80.0); Nucleated Red Blood Cells % 0.3 %; Platelet Count (auto) 243 10^3/uL (140-450); Red Blood Cells 5.27 10^6/uL (4.5-5.90); Red Cell Distribution Width 13.4 % (11.8-14.3)
[2025-01-24 07:11] LABS: Alanine Aminotransferase 28 U/L (7-40); Anion Gap 10 (5-15); Aspartate Aminotransferase 18 U/L (13-40); BUN/Creatinine Ratio 17.9 (10.0-20.0); Blood Urea Nitrogen 12 mg/dL (9-23); Calcium 9.2 mg/dL (8.7-10.4); Carbon Dioxide 26 mmol/L (20-31); Chloride 106 mmol/L (98-107); Sodium 142 mmol/L (136-145); Total Protein 7.3 g/dL (5.7-8.2)
[2025-01-24 07:12] LABS: Albumin 4.4 g/dL (3.2-4.8); Bilirubin, Total 0.9 mg/dL (0.2-1.0); Glucose 124 mg/dL (74-106)
[2025-01-24 07:42] LABS: Alkaline Phosphatase 74 U/L (46-116)
[2025-01-24] MEDS ORDERED: EMPA1TAB PO (07:53)
[2025-01-24] MEDS: LISINOPRIL 5 MG TAB PO SCH (09:59)
--- NOTE | 2025-01-24 16:24 | DVH ---
PROCEDURE: MRI BRAIN HEAD WO CONTRAST Indication: LT SIDED NUMBNESS ARM/FACE COMPARISON: 01/23/2025 TECHNIQUE: Multiplanar multisequence images of the brain are obtained. FINDINGS: There is no abnormal diffusion restriction. There is no intracranial hemorrhage. No extra-axial flui d collection, mass effect or midline shift. The ventricles are midline and normal in size. The cister ns are patent. Normal intracranial flow voids are preserved. No abnormal susceptibility signal. Mild mucosal thickening of the ethmoids, left maxillary sinus. The visualized orbits are unremarkable . IMPRESSION: 1. No acute cerebrovascular ischemia.
--- NOTE | 2025-01-24 17:58 | DVHPN2 ---
Subjective having some numbness on and off on left face Reviewed: H&P, Labs Changes from previous H/P or p: No Changes Eyes: No Pain, No Vision change, No Conjunctivae inflammation, No Eyelid inflammation, No Other, No Redness ENT: No Ear pain, No Ear discharge, No Nose pain, No Nose discharge, No Nose congestion, No Mouth pain, No Mouth swelling, No Throat pain, No Throat swelling, No Other Cardiovascular: No Chest Pain, No Palpitations, No Orthopnea, No Paroxysmal Noc. Dyspnea, No Edema, No Lt Headedness, No Other Respiratory: No Cough, No Dry, No Shortness of breath, No SOB with excertion, No Wheezing, No Hemoptysis, No Pleuritic Pain, No Sputum, No Other Gastrointestinal: No Nausea, No Vomiting, No Abdominal Pain, No Diarrhea, No Constipation, No Melena, No Hematochezia, No Other Genitourinary: No Dysuria, No Frequency, No Incontinence, No Hematuria, No Retention, No Other Musculoskeletal: No other, No neck pain, No shoulder pain, No arm pain, No back pain, No hand pain, No leg pain, No foot pain Skin: No Rash, No Lesions, No Jaundice, No Bruising, No Other Objective Vitals Vital Signs Date Time Temp Pulse Resp B/P (MAP) Pulse Ox O2 Delivery O2 Flow Rate FiO2 01/24/25 16:49 98.1 70 17 142/105 (117) 97 98.1 01/24/25 07:30 Room Air* 0 21 Intake/Output Intake and Output 01/24/25 07:00 Intake Total 1200 ml Balance 1200 ml Intake Oral 1200 ml # Voids 3 General Appearance: Alert, Oriented X3 HEENT: Atraumatic Lungs: Clear to auscultation Cardiovascular: Regular rate, Normal S1, Normal S2 Musculoskeletal: Normal sensory function, Normal motor function Neuro: Normal gait, Normal speech, Strength at 5/5 X4 ext, Normal tone, S ensation intact, Cranial nerves 3-12 NL Medications Current Medications Medications Dose Ordered Sig/Brenda Route Start Time Stop Time Status Last Admin Dose Admin Lisinopril 5 mg DAILY PO 01/24/25 10:00 Hydralazine HCl 10 mg Q6HP PRN IV 01/23/25 14:45 Diagnostic Test (Pha) 1 strip ACHS 01/23/25 17:00 01/24/25 16:33 1 STRIP Insulin Human Regular ACHS SC 01/23/25 17:00 01/24/25 11:25 2 UNITS Dextrose 50 ml UD PRN IV 01/23/25 14:45 Sodium Chloride 10 ml Q8HR IV 01/23/25 22:00 01/24/25 12:26 10 ML Acetaminophen/ Hydrocodone Bitart 1 tab Q4HP PRN PO 01/23/25 14:45 Ondansetron HCl 4 mg Q4HP PRN IV 01/23/25 14:45 Docusate Sodium 100 mg BIDPRN PRN PO 01/23/25 14:45 Acetaminophen 650 mg Q6HP PRN PO 01/23/25 14:45 Nitroglycerin 0.4 mg Q5MINP PRN SL 01/23/25 15:30 Morphine Sulfate 2 mg Q30M PRN IV 01/23/25 15:45 Laboratory Results Laboratory Tests 01/24/25 05:57 Chemistry Test 01/24/25 05:57 Albumin 4.4 g/dL (3.2-4.8) Calcium Level 9.2 mg/dL (8.7-10.4) Total Protein 7.3 g/dL (5.7-8.2) LFT Test 01/24/25 05:57 Alanine Aminotransferase (ALT) 28 U/L (7-40) Alkaline Phosphatase 74 U/L (46-116) Aspartate Amino Transferase (AST) 18 U/L (13-40) Total Bilirubin 0.9 mg/dL (0.2-1.0) Urinalysis Test 01/23/25 13:05 Urine Color Light-yellow (Yellow) Urine Clarity Clear (Clear) Urine pH 5.0 (5.0-9.0) Urine Specific [place] 1.008 (1.001-1.035) Urine Protein Negative (Negative) Urine Ketones Negative (Negative) Urine Blood Negative /uL (Negative) Urine Nitrite Negative (Negative) Urine Bilirubin Negative (Negative) Urine Urobilinogen Normal mg/dL (Negative) Urine Leukocyte Esterase Negative /uL (Negative) Urine RBC 1 /hpf (0 - 3) Urine Microscopic WBC < 1 /HPF (0-3) Urine Squamous Epithelial Cells None seen /hpf (<5) Urine Bacteria Few /hpf (None Seen) H Urine Glucose 3+ mg/dL (Normal) H Assessment/Plan Assessment/Plan Facial paresthesia Left face and left arm tingling Left-sided weakness ordered MRI neurology consult pending aspirin and statin Plan discussed with: Patient My Orders Orders - NURYS ALMAZAN MD Procedure Category Date Status Time Brain Head Wo Contrast MRI 01/24/25 Resulted 13:40 Date of Service: Jan 24, 2025 Billing Provider: NURYS ALMAZAN MD Common Visit Codes: [id number] INP/OBS CARE(HIGH) NURYS ALMAZAN MD Jan 24, 2025 17:58
[2025-01-24] MEDS: ASPirin 81 mg TAB PO SCH (18:27)
--- NOTE | 2025-01-24 22:06 | DVHINCON2 ---
Date of service: Jan 24, 2025 Referring Physician Raheel Reason for Consultation Left-sided weakness History of Present Illness Mr. Vallecillo is a 34 years old right-handed gentleman with a history of diabetes, obesity, obstructive sleep apnea, he was admitted to the [facility] on 01/23/2025 with a chief company of paresthesia. At this time, he is alert and fully oriented, he provided the following history For about four months of time, the patient has spells of numbness/no feeling in the left biceps area and left face, a squeezing feeling in the left biceps area, the event lasts for about 1 hour, was once weekly at the beginning, but since the end of 12/2024, 6 times daily, there was no associated weakness, headache, vision changes or other complaints For the four months of time, he has constant diminished hearing in the left ear Urinalysis, 01/23/2025: Unremarkable CBC, 01/24/2025: Unremarkable CMP, 01/24/2025: Unremarkable TG/HDL/LDL/HDL, 01/17/2025: 150/159/97/45 TSH, 10/12/24: 2.9 MRI head, 01/24/2025: No acute cerebrovascular ischemia Past Medical History Diabetes, obesity, sleep apnea Past Surgical History Appendectomy Family History: Diabetes mellitus G8 MOTHER, Onset:Unknown Family History Diabetes Social History He is a non-Smoker, he denies a history of drug or alcohol abuse Allergies: Coded Allergies: Amoxicillin (Verified Allergy, Unknown, 01/23/25) Home Meds Reported Medications Empagliflozin (Jardiance) 10 Mg Tab, 1 TAB PO QAM 01/24/25 Current Medications Current Medications Medications (Trade) Dose Ordered Sig/Brenda Route PRN Reason Start Time Stop Time Status Last Admin Lisinopril (Zestril Tablet) 5 mg DAILY PO 01/24/25 10:00 Aspirin 81 mg DAILY PO 01/24/25 18:00 01/24/25 18:27 Review of Systems As above, the other systems are negative Vital Signs Vital Signs Date Time Temp Pulse Resp B/P (MAP) Pulse Ox O2 Delivery O2 Flow Rate FiO2 01/24/25 21:00 97.9 85 20 131/88 (102) 97 97.9 01/24/25 07:30 Room Air* 0 21 Physical Exam GENERAL EXAM: General: the patient is well developed and nourished. No acute distress. HEENT: Normocephalic, neck is supple, no carotid bruits. No mass. RESPIRATORY: Normal respiratory effort with symmetrical lung expansion. Lungs clear to auscultation. CARDIOVASCULAR: Regular rate and rhythm with no murmurs. S1, S2. ABDOMEN: Soft, nontender, normal bowel sound NEUROLOGICAL: MENTAL STATUS: Awake and alert. Oriented to person, place, time and general circumstances. Able to give personal history. SPEECH, LANGUAGE, HIGHER CORTICAL FUNCTION: no aphasia or dysathria. CRANIAL NERVES: #2: Intact visual patterson to confrontation. The optic discs were sharp. #3,4,6: Pupils are equal, round and reactive. EOMs full and conjugate. No nystagmus. #5: Light touch to the left face perceived differently. Mandibular strength intact. #7: Facial muscles symmetrical and strength intact. #8: Hearing grossly normal to voice. #9,10: Uvula and soft palate rise in the midline. Swallow and voice are normal. #11: Trapezius and sternomastoid strength intact bilaterally. #12: Tongue midline. No fasciculations or atrophy. SENSATION: Light touch perceived as numbness in left biceps area, and tingling in the left triceps area MOTOR: Normal tone in the upper and lower extremity. Normal muscle bulk. No fasciculations. No abnormal movements or posturing. Muscle strength of the major groups in the upper extremities is 5/5. Muscle strength of the major groups in the lower extremities is 5/5. REFLEXES: Deep tendon reflexes are symmetrical. No pathological reflexes. CEREBELLAR/COORDINATION: Finger to nose and heel to felix are normal bilaterally. GAIT/STATION: deferred Labs/Diagnostic Data Labs Test 01/24/25 16:16 01/24/25 05:57 01/23/25 13:05 01/23/25 10:06 Range/Units POC Glucose 120 H 70-106 mg/dl White Blood Count 8.0 4.4-10.8 10^3/uL Red Blood Count 5.27 4.5-5.90 10^6/uL Hemoglobin 15.6 13.5-17.5 g/dL Hematocrit 45.5 41.0-53.0 % Mean Corpuscular Volume 86.2 80.0-100.0 fL Mean Corpuscular Hemoglobin 29.6 28.0-32.0 pg Mean Corpuscular Hemoglobin Concent 34.3 32.0-36.0 g/dL Red Cell Distribution Width 13.4 11.8-14.3 % Platelet Count 243 140-450 10^3/uL Mean Platelet Volume 8.4 6.9-10.8 fL Neutrophils (%) (Auto) 49.4 37.0-80.0 % Lymphocytes (%) (Auto) 39.8 10.0-50.0 % Monocytes (%) (Auto) 8.4 0.0-12.0 % Eosinophils (%) (Auto) 2.0 0.0-7.0 % Basophils (%) (Auto) 0.4 0.0-2.0 % Neutrophils # (Auto) 3.9 1.6-8.6 10 ^3/uL Lymphocytes # (Auto) 3.2 0.4-5.4 10 ^3/uL Monocytes # (Auto) 0.7 0-1.3 10 ^3/uL Eosinophils # (Auto) 0.2 0-0.8 10 ^3/uL Basophils # (Auto) 0 0-0.2 10 ^3/uL Nucleated Red Blood Cells 0.3 % Sodium Level 142 136-145 mmol/L Potassium Level 4.0 3.5-5.1 mmol/L Chloride Level 106 98-107 mmol/L Carbon Dioxide Level 26 20-31 mmol/L Anion Gap 10 5-15 Blood Urea Nitrogen 12 9-23 mg/dL Creatinine 0.67 L 0.700-1.30 mg/dL Glomerular Filtration Rate Calc 126 >90 mL/min BUN/Creatinine Ratio 17.9 10.0-20.0 Serum Glucose 124 H 74-106 mg/dL Calcium Level 9.2 8.7-10.4 mg/dL Total Bilirubin 0.9 0.2-1.0 mg/dL Aspartate Amino Transferase (AST) 18 13-40 U/L Alanine Aminotransferase (ALT) 28 7-40 U/L Alkaline Phosphatase 74 46-116 U/L Total Protein 7.3 5.7-8.2 g/dL Albumin 4.4 3.2-4.8 g/dL Urine Color Light-yellow Yellow Urine Clarity Clear Clear Urine pH 5.0 5.0-9.0 Urine Specific [place] 1.008 1.001-1.035 Urine Protein Negative Negative Urine Ketones Negative Negative Urine Blood Negative Negative /uL Urine Nitrite Negative Negative Urine Bilirubin Negative Negative Urine Urobilinogen Normal Negative mg/dL Urine Leukocyte Esterase Negative Negative /uL Urine RBC 1 0 - 3 /hpf Urine Microscopic WBC < 1 0-3 /HPF Urine Squamous Epithelial Cells None seen <5 /hpf Urine Bacteria Few H None Seen /hpf Urine Glucose 3+ H Normal mg/dL Troponin I High Sensitivity < 3 L </=54 ng/L Assessment Paresthesia in the left upper extremity and the left face, etiology unclear Unremarkable MRI brain Rule out acute stroke and other intracranial pathology ? Syncopal partial seizure Diminished hearing in the left year Obstructive sleep apnea Plan/Recommendation Monitoring Supportive treatment Telemetry EEG CPAP treatment in the hospital Further address hearing loss as outpatient More recommendation per clinical course Progress: Poor This medical document was created using an electronic medical record system with swiftQueue dictation system. Although this document has been carefully reviewed, there may still be some phonetic and typographical errors. These areas are purely typographical due to imperfections of the software programs, and do not reflect any compromise in the patient's medical care. Plan discussed with: Patient, Other LION BRIGGS MD Jan 24, 2025 22:06
[2025-01-25] VITALS (7 sets, daily range): BP systolic 109–130; BP diastolic 67–83; PULSE 66–83; RESP 16–20; TEMP 36.7; O2SAT 95–98
--- NOTE | 2025-01-25 19:00 | DVHPN2 ---
Progress Note - Dictate Date Seen: Jan 25, 2025 Medical Necessity Reason Pt with a Central, PICC or Fol: No Subjective Patient was not seen Mr. Vallecillo is a 34 years old right-handed gentleman with a history of diabetes, obesity, obstructive sleep apnea, he was admitted to the [facility] on 01/23/2025 with a chief company of paresthesia. At this time, he is alert and fully oriented, he provided the following history For about four months of time, the patient has spells of numbness/no feeling in the left biceps area and left face, a squeezing feeling in the left biceps area, the event lasts for about 1 hour, was once weekly at the beginning, but since the end of 12/2024, 6 times daily, there was no associated weakness, headache, vision changes or other complaints For the four months of time, he has constant diminished hearing in the left ear Urinalysis, 01/23/2025: Unremarkable CBC, 01/24/2025: Unremarkable CMP, 01/24/2025: Unremarkable TG/HDL/LDL/HDL, 01/17/2025: 150/159/97/45 TSH, 10/12/24: 2.9 MRI head, 01/24/2025: No acute cerebrovascular ischemia General: the patient is well developed and nourished. No acute distress. HEENT: Normocephalic, neck is supple, no carotid bruits. No mass. RESPIRATORY: Normal respiratory effort with symmetrical lung expansion. Lungs clear to auscultation. CARDIOVASCULAR: Regular rate and rhythm with no murmurs. S1, S2. ABDOMEN: Soft, nontender, normal bowel sound NEUROLOGICAL: MENTAL STATUS: Awake and alert. Oriented to person, place, time and general circumstances. Able to give personal history. SPEECH, LANGUAGE, HIGHER CORTICAL FUNCTION: no aphasia or dysathria. CRANIAL NERVES: #2: Intact visual patterson to confrontation. The optic discs were sharp. #3,4,6: Pupils are equal, round and reactive. EOMs full and conjugate. No nystagmus. #5: Light touch to the left face perceived differently. Mandibular strength intact. #7: Facial muscles symmetrical and strength intact. #8: Hearing grossly normal to voice. #9,10: Uvula and soft palate rise in the midline. Swallow and voice are normal. #11: Trapezius and sternomastoid strength intact bilaterally. #12: Tongue midline. No fasciculations or atrophy. SENSATION: Light touch perceived as numbness in left biceps area, and tingling in the left triceps area MOTOR: Normal tone in the upper and lower extremity. Normal muscle bulk. No fasciculations. No abnormal movements or posturing. Muscle strength of the major groups in the upper extremities is 5/5. Muscle strength of the major groups in the lower extremities is 5/5. REFLEXES: Deep tendon reflexes are symmetrical. No pathological reflexes. CEREBELLAR/COORDINATION: Finger to nose and heel to felix are normal bilaterally. GAIT/STATION: deferred Paresthesia in the left upper extremity and the left face, etiology unclear Unremarkable MRI brain Rule out acute stroke and other intracranial pathology ? Syncopal partial seizure Diminished hearing in the left year Obstructive sleep apnea Monitoring Supportive treatment Telemetry EEG CPAP treatment in the hospital Further address hearing loss as outpatient More recommendation per clinical course Progress: Poor This medical document was created using an electronic medical record system with [employer]ur[employer] dictation system. Although this document has been carefully reviewed, there may still be some phonetic and typographical errors. These areas are purely typographical due to imperfections of the software programs, and do not reflect any compromise in the patient's medical care. vital signs Vital Sign Date Time Temp Pulse Resp B/P (MAP) Pulse Ox O2 Delivery O2 Flow Rate FiO2 01/25/25 18:12 36.7 83 16 95 01/25/25 17:01 119/83 (95) 01/25/25 08:00 Room Air* 0 21 Total Intake and Output 01/24/25 01/24/25 01/25/25 15:00 23:00 07:00 Intake Total 3600 ml 800 ml Balance 3600 ml 800 ml medications Current Medications Medications Dose Ordered Sig/Brenda Route Start Time Stop Time Status Last Admin Dose Admin Lisinopril 5 mg DAILY PO 01/24/25 10:00 Hydralazine HCl 10 mg Q6HP PRN IV 01/23/25 14:45 Diagnostic Test (Pha) 1 strip ACHS 01/23/25 17:00 01/25/25 17:03 1 STRIP Insulin Human Regular ACHS SC 01/23/25 17:00 01/25/25 17:05 2 UNITS Dextrose 50 ml UD PRN IV 01/23/25 14:45 Sodium Chloride 10 ml Q8HR IV 01/23/25 22:00 01/25/25 14:15 10 ML Acetaminophen/ Hydrocodone Bitart 1 tab Q4HP PRN PO 01/23/25 14:45 Ondansetron HCl 4 mg Q4HP PRN IV 01/23/25 14:45 Docusate Sodium 100 mg BIDPRN PRN PO 01/23/25 14:45 Acetaminophen 650 mg Q6HP PRN PO 01/23/25 14:45 Nitroglycerin 0.4 mg Q5MINP PRN SL 01/23/25 15:30 Morphine Sulfate 2 mg Q30M PRN IV 01/23/25 15:45 Aspirin 81 mg DAILY PO 01/24/25 18:00 01/25/25 09:38 81 MG laboratory and microbiology Laboratory Tests 01/24/25 05:57 Test 01/24/25 05:57 Range/Units Serum Glucose 124 H 74-106 mg/dL Assessment/Plan Paresthesia in the left upper extremity and the left face, etiology unclear Unremarkable MRI brain Rule out acute stroke and other intracranial pathology ? Syncopal partial seizure Diminished hearing in the left year Obstructive sleep apnea Plan discussed with: LION Salazar MD Jan 25, 2025 19:00
--- NOTE | 2025-01-25 19:57 | DVHDS2 ---
Discharge Summary Date of Admission Jan 23, 2025 at 15:17 Date of Discharge: Jan 25, 2025 Labs/Diagnostic Data: Laboratory Results Test 01/25/25 16:56 01/24/25 05:57 01/23/25 13:05 01/23/25 10:06 POC Glucose 159 mg/dl (70-106) White Blood Count 8.0 10^3/uL (4.4-10.8) Red Blood Count 5.27 10^6/uL (4.5-5.90) Hemoglobin 15.6 g/dL (13.5-17.5) Hematocrit 45.5 % (41.0-53.0) Mean Corpuscular Volume 86.2 fL (80.0-100.0) Mean Corpuscular Hemoglobin 29.6 pg (28.0-32.0) Mean Corpuscular Hemoglobin Concent 34.3 g/dL (32.0-36.0) Red Cell Distribution Width 13.4 % (11.8-14.3) Platelet Count 243 10^3/uL (140-450) Mean Platelet Volume 8.4 fL (6.9-10.8) Neutrophils (%) (Auto) 49.4 % (37.0-80.0) Lymphocytes (%) (Auto) 39.8 % (10.0-50.0) Monocytes (%) (Auto) 8.4 % (0.0-12.0) Eosinophils (%) (Auto) 2.0 % (0.0-7.0) Basophils (%) (Auto) 0.4 % (0.0-2.0) Neutrophils # (Auto) 3.9 10 ^3/uL (1.6-8.6) Lymphocytes # (Auto) 3.2 10 ^3/uL (0.4-5.4) Monocytes # (Auto) 0.7 10 ^3/uL (0-1.3) Eosinophils # (Auto) 0.2 10 ^3/uL (0-0.8) Basophils # (Auto) 0 10 ^3/uL (0-0.2) Nucleated Red Blood Cells 0.3 % Sodium Level 142 mmol/L (136-145) Potassium Level 4.0 mmol/L (3.5-5.1) Chloride Level 106 mmol/L (98-107) Carbon Dioxide Level 26 mmol/L (20-31) Anion Gap 10 (5-15) Blood Urea Nitrogen 12 mg/dL (9-23) Creatinine 0.67 mg/dL (0.700-1.30) Glomerular Filtration Rate Calc 126 mL/min (>90) BUN/Creatinine Ratio 17.9 (10.0-20.0) Serum Glucose 124 mg/dL (74-106) Calcium Level 9.2 mg/dL (8.7-10.4) Total Bilirubin 0.9 mg/dL (0.2-1.0) Aspartate Amino Transferase (AST) 18 U/L (13-40) Alanine Aminotransferase (ALT) 28 U/L (7-40) Alkaline Phosphatase 74 U/L (46-116) Total Protein 7.3 g/dL (5.7-8.2) Albumin 4.4 g/dL (3.2-4.8) Urine Color Light-yellow (Yellow) Urine Clarity Clear (Clear) Urine pH 5.0 (5.0-9.0) Urine Specific [place] 1.008 (1.001-1.035) Urine Protein Negative (Negative) Urine Ketones Negative (Negative) Urine Blood Negative /uL (Negative) Urine Nitrite Negative (Negative) Urine Bilirubin Negative (Negative) Urine Urobilinogen Normal mg/dL (Negative) Urine Leukocyte Esterase Negative /uL (Negative) Urine RBC 1 /hpf (0 - 3) Urine Microscopic WBC < 1 /HPF (0-3) Urine Squamous Epithelial Cells None seen /hpf (<5) Urine Bacteria Few /hpf (None Seen) Urine Glucose 3+ mg/dL (Normal) Troponin I High Sensitivity < 3 ng/L (</=54) Other Laboratory Tests 01/24/25 05:57 Brief Hx & Hospital Course: The patient is a 34-year-old male with past medical history of diabetes mellitus who presented to [facility] with complaint of left-sided weakness. Patient reports symptoms progressively get worse with intermittent left arm numbness, facial numbness, for the past 2 weeks, non occurring more frequent 3-4 times each day, getting worse today that prompted this visit. Patient was seen and evaluated in the ED, laboratory data shows WBC 9.7, platelets 251, sodium 142, potassium 3.9, BUN 16, creatinine 0.78, glucose 153, troponin 3, blood pressure 136/89, heart rate 62, temperature 98.4 F, O2 saturation 96% on room air. Head CT showed no evidence of acute intracranial hemorrhage, extra-axial collection, mass effect, midline shift, herniation or hydrocephalus. Please see medication orders section in the computer. On my assessment, patient denied chest pain, no headache, no dizziness, no blurry vision, no shortness of breath, no nausea, vomiting, no fever, no chills. Patient was admitted for further evaluation and medical management. Had MRI which was negative neurology saw and recommended EEG Will need to follow as outpatient Condition at Discharge: Good Final Diagnosis/Problems List peripheral neuropathy stroke ruled out Discharge Disposition: Home Discharge Instruct/Medications Diet: Regular Activity: No Restrictions, As Tolerated Follow Up/Referral: PCP in 7 days Medications: home medications Discharge Statement: "Patient was advised to return to the ER or call 911 if any headaches, dizziness, shortness of breath, chest pain, abdominal pain, bleeding, fevers, or worsening of medical condition. Patient was counseled about treatment plan, medications, possible side effects, patientverbalized understanding. All questions were answered to the best of my ability. This discharge took greater then 30 minutes in planning, reviewing documentation, counseling the patient, and discussing with other team members." ASSESSMENT ASSESSMENT Assessment peripheral neuropathy stroke ruled out Date of Service: Jan 25, 2025 Billing Provider: NURYS ALMAZAN MD Common Visit Codes: 29089-IVS/OBS DISCH DAY >30min NURYS ALMAZAN MD Jan 25, 2025 19:57
--- NOTE | 2025-01-25 21:28 | DVHEEG2 ---
Neurology EEG Procedural Note Procedural Note EXAM DATE: 01/25/25 REFERRING DOCTOR: Dr. Briggs TECHNIQUE: Eighteen channels of EEG, 2 channels of EOG, and 1 channel of EKG were recorded using the International 10/20 system. CLINICAL DATA: The patient was referred for an EEG evaluation for the evidence of seizure disorder. MEDICATIONS: Seizure chart BACKGROUND ACTIVITY: While the patient was awake, the background activity consisted of well regulated 9-10 Hz rhythmic waveforms, symmetrically distributed over both posterior quadrants and was reactive to eye opening. ACTIVATION: Hyperventilation: Not done Photic Stimulation: Not done Sleep: Stage I & II IMPRESSION: This is a normal EEG. No focal, lateralized, or epileptiform features are noted. If clinically indicated to rule out a seizure disorder, recommend repeat EEG with sleep deprivation. The EKG channel showed a regular heart rate of 72 per minute. [place] [address] LION BRIGGS MD Jan 25, 2025 21:28
--- NOTE | 2025-01-28 13:04 | ECG ---
[facility] Test Date: 2025-01-23 Test Time: 09:53:49 Pat Name: LANDON JOINER Department: ER Room: 0222T B Gender: M Travel Rn Or: CARLITO : 1990 Requested By: CASSIDY QUINONEZ Order Number: [id number] Reading MD: Harshil Matthew Measurements Intervals [place] Rate: 78 P: 37 NM: 186 QRS: 96 QRSD: 107 T: 0 QT: 384 QTc: 438 Interpretive Statements Sinus rhythm Borderline right axis deviation Low voltage, precordial leads Borderline ST elevation, lateral leads Baseline wander in lead(s) II,aVR,aVF,V4 Electronically Signed On 01-29-2025 17:24:47 PDT by Harshil Matthew Please click the below link to view image of tracing.
== END 2025-01-25 19:25 | disposition home or self-care (01) | DRG 48 ==
LOC: EEVIPCON 09:33 → ER 09:33 → OVERFLOW 15:17 → TELE-CENTR 18:21
PROVIDERS: ADMIT Hospitalist; ATTEND Hospitalist
DX: E11.42 Type 2 diabetes mellitus with diabetic polyneuropathy (principal); E11.65 Type 2 diabetes mellitus with hyperglycemia; G47.33 Obstructive sleep apnea (adult) (pediatric); Z68.42 Body mass index [BMI] 45.0-49.9, adult; H91.92 Unspecified hearing loss, left ear; Z88.1 Allergy status to other antibiotic agents; Z88.0 Allergy status to penicillin; Z83.3 Family history of diabetes mellitus; Z79.899 Other long term (current) drug therapy; E66.813 Obesity, class 3; Z68.41 Body mass index [BMI] 40.0-44.9, adult
CPT/HCPCS: 36415; 70450; 70551; 71045; 80048; 80053; 81001; 82962; 84484; 85025; 93005; 95819; 96372; 99291; G0378; J1815

== ENCOUNTER 2025-04-26 06:13 | Outpatient (CLI) | payer MEDICAID ==
[~2025-04-26 06:13] MED LIST: EMPA1TAB PO
[2025-04-26 06:45] LABS: Hematocrit 45.8 % (41.0-53.0); Hemoglobin 15.8 g/dL (13.5-17.5); Mean Corpuscular Hemoglobin 29.4 pg (28.0-32.0); Mean Corpuscular Volume 85.0 fL (80.0-100.0); Nucleated Red Blood Cells % 0.2 %
[2025-04-26 06:57] LABS: Alanine Aminotransferase 24 U/L (7-40); Albumin 4.8 g/dL (3.2-4.8); Alkaline Phosphatase 82 U/L (46-116); Anion Gap 9 (5-15); BUN/Creatinine Ratio 13.5 (10.0-20.0); Bilirubin, Total 1.0 mg/dL (0.2-1.0); Blood Urea Nitrogen 12 mg/dL (9-23); Calcium 9.7 mg/dL (8.7-10.4); Carbon Dioxide 28 mmol/L (20-31); Chloride 103 mmol/L (98-107); Cholesterol 144 mg/dL (< 200); Potassium 4.0 mmol/L (3.5-5.1); Sodium 140 mmol/L (136-145); Total Protein 8.0 g/dL (5.7-8.2); Triglycerides 114 mg/dL (< 150)
[2025-04-26 06:59] LABS: Glucose 108 mg/dL (74-106); HDL Cholesterol 37 mg/dL (40-59)
== END 2025-04-26 17:00 | disposition home or self-care (01) ==
LOC: LAB 06:13
PROVIDERS: ATTEND Licensed Practical Nurse
DX: I10 Essential (primary) hypertension (principal); E11.9 Type 2 diabetes mellitus without complications; E78.2 Mixed hyperlipidemia; G43.009 Migraine without aura, not intractable, without status migrainosus
CPT/HCPCS: 36415; 80053; 80061; 82043; 82607; 83036; 85025